=== PATIENT | female | born 1995 | race Caucasian/White ===

== ENCOUNTER 2019-02-21 15:37 | Emergency (ER) | payer BC ==
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
[2019-02-21 17:32] LABS: ABSOLUTE EOSINOPHILS # (AUTO) 0.1 10^3/uL (0.0-0.6); ABSOLUTE LYMPHOCYTES (AUTO) 2.5 10^3/uL (0.5-4.7); ABSOLUTE MONOCYTES (AUTO) 0.6 10^3/uL (0.1-1.4); ABSOLUTE NEUT (AUTO) 4.8 10^3/uL (1.7-8.2); BASOPHILS % (AUTO) 0.3 % (0-2); EOSINOPHILS % (AUTO) 1.3 % (0-6); HEMATOCRIT 35.7 % (36.0-47.0); HEMOGLOBIN 12.4 g/dL (12.0-15.5); LYMPHOCYTES % (AUTO) 31.3 % (13-45); MEAN CORPUSCULAR HEMOGLOBIN 31.3 pg (27.0-33.4); MEAN CORPUSCULAR HGB CONC 34.7 g/dL (32.0-36.0); MEAN CORPUSCULAR VOLUME 90 fl (80-97); PLATELET COUNT 318 10^3/uL (150-450); RED BLOOD COUNT 3.96 10^6/uL (3.72-5.28); RED CELL DISTRIBUTION WIDTH 12.9 % (11.5-14.0); SEGMENTED NEUTROPHILS % (AUTO) 60.1 % (42-78); TOTAL CELLS COUNTED % (AUTO) 100 %
[2019-02-21 17:39] LABS: ALBUMIN 3.9 g/dL (3.5-5.0); ALKALINE PHOSPHATASE 62 U/L (38-126); ANION GAP 9 (5-19); ASPARTATE AMINO TRANSFERASE 27 U/L (14-36); BILIRUBIN,DIRECT 0.1 mg/dL (0.0-0.4); BILIRUBIN,TOTAL 0.5 mg/dL (0.2-1.3); BLOOD UREA NITROGEN 10 mg/dL (7-20); CALCIUM 8.8 mg/dL (8.4-10.2); CARBON DIOXIDE 24 mmol/L (22-30); CHLORIDE 103 mmol/L (98-107); GLUCOSE 80 mg/dL (75-110)
--- NOTE | 2019-02-21 17:49 | RADIOLOGY REPORT (SQ) ---
EXAM DESCRIPTION: U/S OB 14+ TA/1 GEST W/DOPPLER COMPLETED DATE/TIME: 02/21/2019 5:28 pm REASON FOR STUDY: vaginal bleeding, cramping 19 weeks preg COMPARISON: None. TECHNIQUE: Static and Dynamic grayscale imaging performed of gravid uterus using transabdominal appr oach. Additional selected color Doppler and spectral images recorded. All stored on PACS. LIMITATIONS: None. FINDINGS: FETUSES SEEN:1 EGA: 19 weeks 2 days. Calculated using BPD,FL,HC,AC documented on images. No discrepancy with clinic al dates. OPAL: 07/16/2019 EFW: 277 +/- 41 g. PERCENTILE: Not calculated. YANCY: 12.8 cm. PLACENTA: Anterior grade 1 PRESENTATION: Cephalic. ANATOMY: HEART RATE: 133 beats per minute. anatomical survey was not performed. MATERNAL ADNEXA: Maternal ovaries not visualized. CERVICAL LENGTH: 3.1 cm. Closed. OTHER: No other significant finding. IMPRESSION: LIVING INTRAUTERINE . ESTIMATED GESTATIONAL AGE 19 weeks 2 days. NO VISUALIZED ANOMALIES. Trimester of : Second trimester - 13 weeks 1 day to 27 weeks 6 days. TECHNICAL DOCUMENTATION: JOB ID: [id number] [employer]- All Rights Reserved Reading location - IP/workstation name: [email or web address]
[2019-02-21 18:00] LABS: APPEARANCE,URINE CLEAR; BILIRUBIN,URINE NEGATIVE (NEGATIVE); COLOR,URINE STRAW; GLUCOSE, URINE NEGATIVE (NEGATIVE); KETONES,URINE NEGATIVE (NEGATIVE); LEUKOCYTE ESTERASE,URINE NEGATIVE (NEGATIVE); NITRITE,URINE NEGATIVE (NEGATIVE); PROTEIN,URINE NEGATIVE (NEGATIVE); URINE SPECIFIC GRAVITY 1.004; UROBILINOGEN,URINE NEGATIVE mg/dL (<2.0)
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
[2019-02-21 19:28] VITALS: BP 109/65
== END 2019-02-21 19:30 | disposition home or self-care (01) ==
LOC: ER 15:37
DX: O26.892 Other specified pregnancy related conditions, second trimester (principal); N89.8 Other specified noninflammatory disorders of vagina; Z3A.19 19 weeks gestation of pregnancy
CPT/HCPCS: 36415; 76805; 80053; 81001; 85025; 86900; 86901; 93976; 99284

== ENCOUNTER 2019-06-15 23:54 | Outpatient (CLI) | payer OTHER ==
[2019-06-16 00:29] LABS: APPEARANCE,URINE SLIGHTLY-CLOUDY; BILIRUBIN,URINE NEGATIVE (NEGATIVE); COLOR,URINE YELLOW; GLUCOSE, URINE NEGATIVE (NEGATIVE); KETONES,URINE NEGATIVE (NEGATIVE); LEUKOCYTE ESTERASE,URINE SMALL (NEGATIVE); NITRITE,URINE NEGATIVE (NEGATIVE); PROTEIN,URINE NEGATIVE (NEGATIVE); URINE SPECIFIC GRAVITY 1.009; UROBILINOGEN,URINE NEGATIVE mg/dL (<2.0)
[2019-06-16 00:39] LABS: URINE AMPHETAMINES SCREEN NEGATIVE; URINE BENZODIAZEPINES SCREEN NEGATIVE; URINE COCAINE SCREEN NEGATIVE; URINE MARIJUANA (THC) SCREEN NEGATIVE; URINE METHADONE SCREEN NEGATIVE; URINE PHENCYCLIDINE SCREEN NEGATIVE
[2019-06-16 00:53] LABS: URINE BARBITURATES SCREEN UNCONFIRMED POSITIVE
== END 2019-06-16 00:36 | disposition home or self-care (01) ==
LOC: LC 23:54
PROVIDERS: ATTEND Student in an Organized Health Care Education/Training Program
PROC: 4A1HXCZ Monitoring of Products of Conception, Cardiac Rate, External Approach (ICD-10-PCS; principal; 2019-06-15)
DX: O36.8130 Decreased fetal movements, third trimester, not applicable or unspecified (principal); Z3A.35 35 weeks gestation of pregnancy
CPT/HCPCS: 59025; 80307; 81001

== ENCOUNTER 2019-07-18 06:27 | Inpatient (IN) | payer OTHER ==
[2019-07-18] MEDS ORDERED: OXYTOCIN/NORMAL SALINE 20 UNIT/1,000 ML RTUINJ IV PRN ×2 (06:55→16:48)
[2019-07-18 07:38] LABS: ABSOLUTE EOSINOPHILS # (AUTO) 0.1 10^3/uL (0.0-0.6); ABSOLUTE LYMPHOCYTES (AUTO) 2.4 10^3/uL (0.5-4.7); ABSOLUTE MONOCYTES (AUTO) 0.7 10^3/uL (0.1-1.4); ABSOLUTE NEUT (AUTO) 5.2 10^3/uL (1.7-8.2); BASOPHILS % (AUTO) 0.4 % (0-2); EOSINOPHILS % (AUTO) 0.8 % (0-6); HEMATOCRIT 34.5 % (36.0-47.0); HEMOGLOBIN 12.5 g/dL (12.0-15.5); LYMPHOCYTES % (AUTO) 29.1 % (13-45); MEAN CORPUSCULAR HEMOGLOBIN 31.8 pg (27.0-33.4); MEAN CORPUSCULAR HGB CONC 36.4 g/dL (32.0-36.0); MEAN CORPUSCULAR VOLUME 87 fl (80-97); MONOCYTES % (AUTO) 8.2 % (3-13); PLATELET COUNT 229 10^3/uL (150-450); RED BLOOD COUNT 3.94 10^6/uL (3.72-5.28); RED CELL DISTRIBUTION WIDTH 12.3 % (11.5-14.0); SEGMENTED NEUTROPHILS % (AUTO) 61.5 % (42-78); TOTAL CELLS COUNTED % (AUTO) 100 %; WHITE BLOOD COUNT 8.4 10^3/uL (4.0-10.5)
[2019-07-18 07:42] LABS: APPEARANCE,URINE SLIGHTLY-CLOUDY; BILIRUBIN,URINE NEGATIVE (NEGATIVE); COLOR,URINE YELLOW; GLUCOSE, URINE NEGATIVE (NEGATIVE); KETONES,URINE NEGATIVE (NEGATIVE); LEUKOCYTE ESTERASE,URINE MODERATE (NEGATIVE); NITRITE,URINE NEGATIVE (NEGATIVE); PROTEIN,URINE 30 mg/dL (NEGATIVE); URINE SPECIFIC GRAVITY 1.011; UROBILINOGEN,URINE NEGATIVE mg/dL (<2.0)
[2019-07-18] MEDS ORDERED: MISOPROSTOL 0.2 MG TABLET ONE (08:02)
[2019-07-18] MEDS ORDERED: OXYTOCIN/NORMAL SALINE 20 UNIT/1,000 ML RTUINJ ONE (08:02)
[2019-07-18] MEDS ORDERED: OXYTOCIN 10 UNIT/ML VIAL ONE (08:02)
[2019-07-18] MEDS ORDERED: LIDOCAINE 1% INJ-PF (10 MG/ML) 30 ML SDV ONE (08:02)
[2019-07-18 08:03] LABS: URINE AMPHETAMINES SCREEN NEGATIVE; URINE BENZODIAZEPINES SCREEN NEGATIVE; URINE COCAINE SCREEN NEGATIVE; URINE MARIJUANA (THC) SCREEN NEGATIVE; URINE METHADONE SCREEN NEGATIVE; URINE PHENCYCLIDINE SCREEN NEGATIVE
[2019-07-18 08:14] LABS: URINE BARBITURATES SCREEN UNCONFIRMED POSITIVE
--- NOTE | 2019-07-18 09:03 | Admission Physical ---
Datetime Report Generated by CPN: 07/18/2019 09:03 CURRENT ADMISSION Indication for Induction: IUGR Admit Impression : Term, Intrauterine Admit Plan: Admit to Unit; Initiate Labor Induction Protocol ALLERGIES Medication Allergies: No Medication Allergies: No Known Allergies (06/16/2019) OBSTETRICAL HISTORY EDC: 07/16/2019 00:00 : 2 Para: 1 Gestational Diabetes: No Rh Sensitization: No Incompetent Cervix: No ERIC: No Infertility: No ART Treatment: No Uterine Anomaly: No IUGR: Yes Hx Previous C/S: No Macrosomia: No Hx Loss/Stillborn: No PIH: No Hx : No Placenta Previa/Abruption: No Depression/PP Depression: Yes PTL/PROM: No Post Hemorrhage: No Current Procedures: Ultrasound; NST Obstetrical History Comments: G1- 2015 , 37 weeks G2- current SEE RECORDS Alcohol: No Marijuana : No Cocaine: No Other Illicit Drugs: No Cigarettes: Never Smoker. [id number] MEDICAL HISTORY Diabetes: No Blood Transfusion: No Pulmonary Disease (Asthma, TB): No Breast Disease: No Hypertension: No Substance Addiction Coordinator Surgery: No Heart Disease: No Hosp/Surgery: No Autoimmune Disorder: No Anesthetic Complications: No Kidney Disease: Yes Abnormal Pap Smear: No Neuro/Epilepsy: No Psychiatric Disorders: No Other Medical Diseases: No Hepatitis/Liver Disease: No Significant Family History: No Varicosities/Phlebitis: No Trauma/Violence : No Thyroid Dysfunction: No Medical History Comments: recurrent UTIs, fibromyalgia, anxiety/depression, PP depression, childbirth, reconstructive chin surgery in childhood INFECTIOUS HISTORY Gonorrhea: No Genital Herpes: No Chlamydia: No Tuberculosis: No Syphilis: No Hepatitis: No HIV/AIDS Exposure: No Rash or Viral Illness: No HPV: No PHYSICAL EXAM General: Normal HEENT: Normal Neurologic: Normal Thyroid: Normal Heart: Normal Lungs: Normal Breast: Normal Back: Normal Abdomen: Normal Genitourinary Exam: Normal Extremities: Normal DTRs: Normal Pelvic Type: Adequate Vital Signs: Reviewed VAGINAL EXAM Dilatation: 3 Effacement: 60 Station: -1 Contraction Comments: 0 MEMBRANES Membranes: Intact FETUS A Monitoring: External US FHR- Baseline: 120 Variability: Moderate 6-25bpm Accelerations: 15X15 Decelerations: None Admit Comment: at 40.2 wks here for IOL, hx IUGR this . Pt denies SROM, bleeding or contractions. GBS negative. She does plan an epidural when in active labor. VE per RN pt is /-1. Vtx on spot check u/s this morning. Plan to start Pitocin, then AROM once pt has regular contractions. Attending MD is Dr Castorena today PLANS FOR LABOR AND DELIVERY Labor and Delivery: None Pain Management: Epidural Feeding Preference: Breast Benefit of Breast Feed Discussed: Yes Circumcision: N/A INFORMED CONSENT Assignment: Nely Castorena MD Signature: with User ID: Theresa : with User ID: Theresa
[2019-07-18] MEDS ORDERED: EPHEDRINE SULFATE INJ 50 MG/1 ML AMPULE ONE (12:19)
[2019-07-18] MEDS ORDERED: FENTANYL/BUPIVACAINE/NS/PF 300 MCG/150 ML RTUINJ EPI ONE (12:19)
[2019-07-18] MEDS ORDERED: BUPIVACAINE HCL 0.25 % INJ/PF (2.5 MG/1 ML) 30 ML VIAL ONE (12:19)
[2019-07-18] MEDS ORDERED: BENZOCAINE/MENTHOL AEROSOL SPRAY 56 ML TOP PRN (16:48)
[2019-07-18] MEDS ORDERED: ZOLPIDEM TARTRATE 5 MG TABLET PO PRN (16:48)
[2019-07-18] MEDS ORDERED: DIPH/PERTUSS(ACELL)/TETANUS VAC/PF 0.5 ML SYR (>=10YO) IM PRN (16:48)
[2019-07-18] MEDS ORDERED: MEASLES,MUMPS&RUBELLA VACC/PF 0.5 ML VIAL SUBCUT PRN (16:48)
[2019-07-18] MEDS ORDERED: ACETAMINOPHEN WITH CODEINE #3 TABLET PO PRN (16:48)
[2019-07-18] MEDS ORDERED: DIBUCAINE 1% OINTMENT 28 GM TP PRN (16:48)
--- NOTE | 2019-07-18 17:13 | Warning Signs in Babies ---
VOD Warning Signs Datetime Report Generated by [facility]: 07/18/2019 17:13 VOD#608 -Warning Signs in Babies: Needs to be viewed. (06/15/2019 23:56:Fatemeh Herrera RN)
[2019-07-18] MEDS ORDERED: DOCUSATE SODIUM 100 MG CAPSULE ONE (17:57)
[2019-07-18] MEDS ORDERED: IBUPROFEN 800 MG TABLET ONE (17:57)
[2019-07-18] MEDS ORDERED: NITROFURANTOIN MONOHYD/M-CRYST 100 MG CAPSULE ONE (17:57)
[2019-07-18] MEDS ORDERED: FERROUS SULFATE 325 MG TABLET PO ONE (17:58)
[2019-07-18] MEDS: FERROUS SULFATE 325 MG TABLET PO SCH (18:00)
[2019-07-18] MEDS: IBUPROFEN 800 MG TABLET PO SCH (18:00)
[2019-07-18] MEDS: NITROFURANTOIN MONOHYD/M-CRYST 100 MG CAPSULE PO SCH (18:00)
[2019-07-18] MEDS: DOCUSATE SODIUM 100 MG CAPSULE PO SCH (18:01)
--- NOTE | 2019-07-18 18:54 | Delivery Summary ---
Del Sum A-C Datetime Report Generated by CPN: 07/18/2019 18:53 DELIVERY PERSONNEL DELIVERY PERSONNEL: [id number] Delivery Doctor:: Karrie Lincoln CNM Nurse Pot Maker Certified:: Karrie Lincoln CNM Labor and Delivery Nurse:: Fatemeh Herrera RN Nursery Nurse:: More Gavin RN Secretary Of State/COMMERCIAL TRAILER TRUCK DRIVER: Ludivina Sexton, ST MATERNAL INFORMATION Delivery Anesthesia: Epidural Medications After Delivery: Pitocin Drip 20 Units/1000ml NSS Delivery QBL: 150 Maternal Complications: None Provider Comments: of VFI, loose NC x 1, easily reduced. Baby vigorous and crying, mouth was bulb suctioned and placed on pts abdoman in stable condition. NBN RN present to assume care of baby.Cord clamped and cut after one minute. Cord blood obtained. 3 VC noted. PLacenta, S/C/I, meconium staining noted. Placenta to path. IV Pitocin infusing, Ff w/ decreased lochia. QBL 150 ml. No repair needed. Pt plans to breastfeed. Mother and baby in stable condition. Attending MD is Dr Castorena LABOR SUMMARY EDC: 07/16/2019 00:00 No. Babies in Womb: 1 Attempted: No Labor Anesthesia: Epidural LABOR INFORMATION Reason for Induction: Intrauterine Growth Retardation Onset of Labor: 07/18/2019 13:26 Complete Dilatation: 07/18/2019 16:20 Oxytocin: Induction Group B Beta Strep: Negative Antibiotics # of Doses: 0 Antibiotics Time of Last Dose: N/A Name of Antibiotic Given: N/A Steroids Given: None Reason Steroids Not Administered: Not Applicable MEMBRANES Membranes Rupture Method: Artificial Rupture of Membranes: 07/18/2019 13:54 Length of Rupture (hr): 2.73 Amniotic Fluid Color: Moderate Meconium Amniotic Fluid Amount: Moderate Amniotic Fluid Odor: None STAGES OF LABOR Stage 1 hr: 2 Stage 1 min: 54 Stage 2 hr: 0 Stage 2 min: 18 Stage 3 hr: 0 Stage 3 min: 6 Total Time in Labor hr: 3 Total Time in Labor min: 18 VAGINAL DELIVERY Episiotomy: None Laceration #1: Periurethral Laceration Repair: No Sponge Count Correct: N/A Sharps Count Correct: N/A CSECTION DELIVERY Primary Indication: N/A Secondary Indication: N/A CSection Incidence: N/A Labor: N/A Elective: N/A CSection Incision: N/A BABY A INFORMATION Delivery Date/Time: 07/18/2019 16:38 Method of Delivery: Vaginal Nurse Controlled Delivery: No Born in Route : No : N/A Forceps: N/A Vacuum Extraction: N/A Shoulder Dystocia : No PRESENTATION/POSITION BABY A Presentation: Cephalic Cephalic Presentation: Vertex Vertex Position: Left Occipital Anterior Breech Presentation: N/A PLACENTA INFORMATION BABY A Placenta Delivery Time : 07/18/2019 16:44 Placenta Method of Delivery: Spontaneous Placenta Status: Delivered SCORES BABY A Heart Rate 1 min: >100 bpm Resp Effort 1 min: Good Cry Reflex Irritability 1 min: Cough or Sneeze or Pulls Away Muscle Tone 1 min: Active Motion Color 1 min: Blue/Pale Resuscitation Effort 1 min: Tactile Stimulation SCORE 1 MIN: 8 Heart Rate 5 min: >100 bpm Resp Effort 5 min: Good Cry Reflex Irritability 5 min: Cough or Sneeze or Pulls Away Muscle Tone 5 min: Active Motion Color 5 min: Body [place], Extremities Blue Resuscitation Effort 5 min: N/A SCORE 5 MIN: 9 INFORMATION BABY A Gestational Age at Delivery: 40.2 Gestational Status: Full Term- 39- 40.6 Weeks Outcome : Liveborn Infant Condition : Stable Sex: Female IDENTIFICATION BABY A Infant Verification Date/Time: 07/18/2019 17:10 ID Band Number: [id number] Mother's Name Verified: Yes Infant RN Verifying Infant: JNiebuhr,RN Additional Verifying Personnel: Myra,OFE WEIGHT/LENGTH BABY A Infant Birthweight (gm): 3309 Infant Weight (lb): 7 Infant Weight (oz): 5 Length (in): 20.00 Length (cm): 50.80 CORD INFORMATION BABY A No. Cord Vessels: 3 Nuchal Cord : Around Neck x1, Tight Cord Blood Taken: Yes-For Storage (Mom's Blood type +) Suction: Mouth; Nose ASSESSMENT BABY A Complications: Meconium Physical Findings at Delivery: Within Normal Limits Infant Respirations: Appears Normal Skin to Skin: Yes Skin to Skin Time (min): 60 Machine Carton Marker/ALS Called : No Care By: KCrimm,RN Transferred To: Remains with Mother BABY B INFORMATION : N/A SIGNATURES Assignment: Nely Castorena MD Signature: with User ID: Theresa : with User ID: Theresa
[2019-07-19] MEDS: IBUPROFEN 800 MG TABLET PO SCH ×3 (02:27→17:02)
[2019-07-19 06:57] LABS: HEMATOCRIT 32.1 % (36.0-47.0); HEMOGLOBIN 11.4 g/dL (12.0-15.5); MEAN CORPUSCULAR HEMOGLOBIN 31.3 pg (27.0-33.4); MEAN CORPUSCULAR HGB CONC 35.6 g/dL (32.0-36.0); MEAN CORPUSCULAR VOLUME 88 fl (80-97); PLATELET COUNT 199 10^3/uL (150-450); RED BLOOD COUNT 3.65 10^6/uL (3.72-5.28); RED CELL DISTRIBUTION WIDTH 12.4 % (11.5-14.0); WHITE BLOOD COUNT 11.9 10^3/uL (4.0-10.5)
[2019-07-19] MEDS: NITROFURANTOIN MONOHYD/M-CRYST 100 MG CAPSULE PO SCH (09:10)
[2019-07-19] MEDS: FERROUS SULFATE 325 MG TABLET PO SCH ×2 (09:10→17:01)
[2019-07-19] MEDS: PRENATAL VITAMIN W DHA CAPSULE PO SCH (09:11)
[2019-07-19] MEDS: DOCUSATE SODIUM 100 MG CAPSULE PO SCH ×2 (09:11→17:01)
[2019-07-19] MEDS: SENNOSIDES/DOCUSATE 8.6-50 MG 1 EACH TABLET PO SCH (09:12)
--- NOTE | 2019-07-19 10:14 | PDOC PROGRESS REPORT ---
Subjective-OB Progress Note for:: 07/19/19 - PP day #1, doing well, , AB+, rubella immune, UOB, voiding Physical Exam (OB) Vital Signs: Temp Pulse Resp BP Pulse Ox 97.9 F 74 18 137/95 H 100 07/19/19 07:26 07/19/19 07:26 07/19/19 07:26 07/19/19 07:26 07/19/19 07:26 Intake & Output 07/18/19 07/19/19 07/20/19 06:59 06:59 06:59 Intake Total 1600 Output Total 600 Balance 1000 Weight 66.6 kg - General General Appearance: Appears well, Alert In distress: None - PIH/Pre-Eclampsia Headache: Absent Epigastric Pain: No Visual Changes: No - Lochia Lochia Amount: Scant < 10 ml Lochia Color: Rubra/Red - Abdomen Description: Soft Hernia Present: No Fundal Description: Firm, Midline Fundal Height: u/u - u/2 - Respiratory Respiratory Status: No respiratory distress - Abdominal Distension: No distension Tenderness: Nontender - Genitourinary Genitourinary Note: voiding - Extremities Upper extremity: Normal inspection Lower extremities: Normal inspection - Neurological Cognition: Normal Orientation: AAOx4 - Psychological Associated symptoms: Normal affect, Normal mood - Skin Skin Temperature: Warm Skin Moisture: Dry Objective-Diagnostic Laboratory: 07/19/19 06:37 07/19/19 06:37 WBC 11.9 H RBC 3.65 L Hgb 11.4 L Hct 32.1 L MCV 88 MCH 31.3 MCHC 35.6 RDW 12.4 Plt Count 199 Assessment and Plan(PN) - Assessment and Plan (1) (normal spontaneous vaginal delivery) Is this a current diagnosis for this admission?: Yes (2) 40 weeks gestation of Is this a current diagnosis for this admission?: Yes Plan:: Routine PP orders, watch BP, Routine PP orders - Time Spent with Patient Time with patient: Less than 15 minutes Medications reviewed and adjusted accordingly: Yes - Disposition Within: within 24 hours
[2019-07-19] MEDS: SERTRALINE HCL 50 MG TABLET PO SCH (11:19)
[2019-07-20] MEDS: IBUPROFEN 800 MG TABLET PO SCH ×2 (03:03→09:57)
[2019-07-20 07:43] VITALS: BP 129/90
[2019-07-20] MEDS: SERTRALINE HCL 50 MG TABLET PO SCH (09:56)
[2019-07-20] MEDS: FERROUS SULFATE 325 MG TABLET PO SCH (09:57)
[2019-07-20] MEDS: PRENATAL VITAMIN W DHA CAPSULE PO SCH (09:57)
[2019-07-20] MEDS: NITROFURANTOIN MONOHYD/M-CRYST 100 MG CAPSULE PO SCH (09:57)
[2019-07-20] MEDS: DOCUSATE SODIUM 100 MG CAPSULE PO SCH (09:57)
[2019-07-20] MEDS: SENNOSIDES/DOCUSATE 8.6-50 MG 1 EACH TABLET PO SCH (09:58)
--- NOTE | 2019-07-20 10:18 | PDOC DISCHARGE SUMMARY ---
Impression - Admit/DC Date/PCP Admission Date/Primary Care Provider: 07/18/19 06:27 ADRIANA HEARD MD Discharge Date: 07/20/19 - PP Day #2, doing well, no complaints, , AB+, Rubella immune - Discharge Diagnosis (1) (normal spontaneous vaginal delivery) Is this a current diagnosis for this admission?: Yes (2) 40 weeks gestation of Is this a current diagnosis for this admission?: Yes - Additional Information Resuscitation Status: Full Code Discharge Diet: As Tolerated, Regular Discharge Activity: Activity As Tolerated, No Lifting Over 10 Pounds, Pelvic Rest Referrals: ADRIANA HEARD MD [Primary Care Provider] - Prescriptions: Ibuprofen [Motrin 800 mg Tablet] 800 mg PO Q8A #60 tablet Home Medications: Nitrofurantoin Monohyd/M-Cryst [Macrobid 100 mg Capsule] 100 mg PO DAILY 06/16/19 Vit No.130/Iron/Folic [ Tablet] 1 tab PO DAILY 06/16/19 Sertraline HCl [Zoloft 50 mg Tablet] 50 mg PO DAILY 06/16/19 Ibuprofen [Motrin 800 mg Tablet] 800 mg PO Q8A #60 tablet 07/20/19 HPI Reason(s) for Admission: Induction of Labor, Other - for suspected IUGR Procedures: NST, Ultrasound Intrapartum Procedure(s): Spontaneous Vaginal Delivery Hospital Course Hospital Course: routine Results Laboratory Results: WBC 11.9 10^3/uL (4.0-10.5) H 07/19/19 06:37 RBC 3.65 10^6/uL (3.72-5.28) L 07/19/19 06:37 Hgb 11.4 g/dL (12.0-15.5) L 07/19/19 06:37 Hct 32.1 % (36.0-47.0) L 07/19/19 06:37 MCV 88 fl (80-97) 07/19/19 06:37 MCH 31.3 pg (27.0-33.4) 07/19/19 06:37 MCHC 35.6 g/dL (32.0-36.0) 07/19/19 06:37 RDW 12.4 % (11.5-14.0) 07/19/19 06:37 Plt Count 199 10^3/uL (150-450) 07/19/19 06:37 Lymph % (Auto) 29.1 % (13-45) 07/18/19 07:21 [place] % (Auto) 8.2 % (3-13) 07/18/19 07:21 Eos % (Auto) 0.8 % (0-6) 07/18/19 07:21 Baso % (Auto) 0.4 % (0-2) 07/18/19 07:21 Absolute Neuts (auto) 5.2 10^3/uL (1.7-8.2) 07/18/19 07:21 Absolute Lymphs (auto) 2.4 10^3/uL (0.5-4.7) 07/18/19 07:21 Absolute Monos (auto) 0.7 10^3/uL (0.1-1.4) 07/18/19 07:21 Absolute Eos (auto) 0.1 10^3/uL (0.0-0.6) 07/18/19 07:21 Absolute Basos (auto) 0.0 10^3/uL (0.0-0.2) 07/18/19 07:21 Seg Neutrophils % 61.5 % (42-78) 07/18/19 07:21 Urine Color YELLOW 07/18/19 06:52 Urine Appearance SLIGHTLY-CLOUDY 07/18/19 06:52 Urine pH 7.0 (5.0-9.0) 07/18/19 06:52 Ur Specific [place] 1.011 07/18/19 06:52 Urine Protein 30 mg/dL (NEGATIVE) H 07/18/19 06:52 Urine Glucose (UA) NEGATIVE mg/dL (NEGATIVE) 07/18/19 06:52 Urine Ketones NEGATIVE mg/dL (NEGATIVE) 07/18/19 06:52 Urine Blood NEGATIVE (NEGATIVE) 07/18/19 06:52 Urine Nitrite NEGATIVE (NEGATIVE) 07/18/19 06:52 Urine Bilirubin NEGATIVE (NEGATIVE) 07/18/19 06:52 Urine Urobilinogen NEGATIVE mg/dL (<2.0) 07/18/19 06:52 Ur Leukocyte Esterase MODERATE (NEGATIVE) H 07/18/19 06:52 Urine Ascorbic Acid NEGATIVE (NEGATIVE) 07/18/19 06:52 Urine Opiates Screen NEGATIVE 07/18/19 06:52 Urine Methadone Screen NEGATIVE 07/18/19 06:52 Ur Barbiturates Screen UNCONFIRMED POSITIVE 07/18/19 06:52 Ur Phencyclidine Scrn NEGATIVE 07/18/19 06:52 Ur Amphetamines Screen NEGATIVE 07/18/19 06:52 U Benzodiazepines Scrn NEGATIVE 07/18/19 06:52 Urine Cocaine Screen NEGATIVE 07/18/19 06:52 U Marijuana (THC) Screen NEGATIVE 07/18/19 06:52 RPR NONREACTIVE (NONREACTIVE) 07/18/19 07:21 Blood Type AB POSITIVE 07/18/19 07:21 Antibody Screen NEGATIVE 07/18/19 07:21 Plan Plan of Treatment: d/c home, pt to f/up with [facility] in 4 wks for PP check Time Spent: Less than 30 Minutes
== END 2019-07-20 12:55 | disposition home or self-care (01) | DRG 807 ==
LOC: LR 06:27 → 2S 20:20
PROVIDERS: ADMIT Obstetrics & Gynecology; ATTEND Obstetrics & Gynecology
PROC: 10E0XZZ Delivery of Products of Conception, External Approach (ICD-10-PCS; principal; 2019-07-18)
PROC: 0UQMXZZ Repair Vulva, External Approach (ICD-10-PCS; 2019-07-18)
PROC: 3E033VJ Introduction of Other Hormone into Peripheral Vein, Percutaneous Approach (ICD-10-PCS; 2019-07-18)
PROC: 10907ZC Drainage of Amniotic Fluid, Therapeutic from Products of Conception, Via Natural or Artificial Opening (ICD-10-PCS; 2019-07-18)
DX: O36.5930 Maternal care for other known or suspected poor fetal growth, third trimester, not applicable or unspecified (principal); Z37.0 Single live birth; O69.1XX0 Labor and delivery complicated by cord around neck, with compression, not applicable or unspecified; O71.82 Other specified trauma to perineum and vulva; Z3A.40 40 weeks gestation of pregnancy
CPT/HCPCS: 1967; 36415; 80307; 81005; 85025; 85027; 86592; 86850; 86900; 86901; 88307; 94760; J2590; J3010; J3490; J8499